=== PATIENT | male | born 1990 | race Caucasian/White ===

== ENCOUNTER 2020-01-11 12:30 | Outpatient (CLI) | payer BC | END 2020-01-11 12:31 | disposition home or self-care (01) | LOC: COV 12:30 | PROVIDERS: ATTEND Family Medicine | DX: R53.83 Other fatigue (principal); Z20.828 Contact with and (suspected) exposure to other viral communicable diseases; R43.9 Unspecified disturbances of smell and taste; R11.2 Nausea with vomiting, unspecified; J02.9 Acute pharyngitis, unspecified ==